=== PATIENT | female | born 1990 | race Two or more races ===

== ENCOUNTER 2017-06-10 18:39 | Emergency (ER) | payer MEDICAID, OTHER, SELFPAY ==
[~2017-06-10] VITALS: Ht 154.9 cm; Wt 74.2 kg
[2017-06-10 18:47] VITALS: BP 123/75
[2017-06-10] MEDS ORDERED: METOCLOPRAMIDE 5 MG/ML, 2ML ONE (19:22)
[2017-06-10] MEDS ORDERED: DIPHENHYDRAMINE 50 MG/ML, 1ML ONE (19:22)
[2017-06-10] MEDS ORDERED: KETOROLAC 30 MG/1 ML ONE (19:22)
[2017-06-10] MEDS ORDERED: SODIUM CHLORIDE 0.9% 1,000ML IVBOLUS ONE (19:30)
[2017-06-10] MEDS ORDERED: METOCLOPRAMIDE 5 MG/ML, 2ML IVPush ONE (19:30)
[2017-06-10] MEDS ORDERED: SODIUM CHLORIDE FLUSH 10ML SYR IVF ONE (19:30)
[2017-06-10] MEDS ORDERED: DIPHENHYDRAMINE 50 MG/ML, 1ML IVPush ONE (19:30)
[2017-06-10] MEDS ORDERED: KETOROLAC 30 MG/1 ML IVPush ONE (19:30)
== END 2017-06-10 21:07 | disposition home or self-care (01) ==
LOC: ED 21:05
DX: G43.909 Migraine, unspecified, not intractable, without status migrainosus (principal); M54.2 Cervicalgia
CPT/HCPCS: 96374; 96375; 99284; J1200; J1885; J2765; J7030

== ENCOUNTER 2018-02-28 19:58 | Emergency (ER) | payer BC, OTHER ==
[~2018-02-28] VITALS: Ht 157.5 cm; Wt 72.4 kg
[2018-02-28 20:01] VITALS: BP 132/86
[2018-02-28] MEDS ORDERED: FAMOTIDINE 20 MG TABLET ONE (20:44)
[2018-02-28] MEDS ORDERED: FAMOTIDINE 20 MG TABLET PO ONE (21:00)
== END 2018-02-28 21:13 | disposition home or self-care (01) ==
LOC: ED 20:20
DX: L50.9 Urticaria, unspecified (principal)
CPT/HCPCS: 99283; J7512